=== PATIENT | female | born 1990 | race Caucasian/White ===

== ENCOUNTER 2020-04-07 14:26 | Emergency (ER) | payer MEDICAID ==
[~2020-04-07] VITALS: Ht 172.7 cm; Wt 81.6 kg
--- NOTE | 2020-04-07 14:37 | NUR ---
CAME IN FOR FOUL SMELLING VAGINAL DISCHARGE NOTED, TOOK 2ND "MORNING AFTER PILL", TO ER BED 16, HOOKED TO MONITOR, CHANGED TO HOSP GOWN, WARM BLANKET PROVIDED, PATIENT AAO x 4, BREATHING EVEN AND UNLABORED. AWAITING MD RODRIGUEZ.
--- NOTE | 2020-04-07 14:48 | NUR ---
DR HATHAWAY AT BEDSIDE
[2020-04-07 15:15] LABS: APPEARANCE,URINE Clear (CLEAR); BILIRUBIN,URINE Negative (NEGATIVE); BLOOD, URINE Negative Ery/uL (NEGATIVE); COLOR,URINE Yellow (YELLOW); KETONES,URINE Negative (NEGATIVE); LEUKOCYTE ESTERASE ,URINE Negative (NEGATIVE); NITRITE, URINE Negative (NEGATIVE); PH,URINE 8.5 (5.0-8.0); PROTEIN,URINE Negative (NEGATIVE); UGLUCOSE Negative (NEGATIVE); UROBILINOGEN,URINE 0.2 EU/dL (0.2)
[2020-04-07 15:34] LABS: BASOPHILS % (AUTO) 0.4 % (0.0-2.0); EOSINOPHILS % (AUTO) 4.2 % (0.0-6.0); HEMATOCRIT 35 % (33-45); HEMOGLOBIN 11.3 g/dL (11.5-14.8); LYMPHOCYTES # (AUTO) 2.1 /CMM (0.8-4.8); MEAN CORPUSCULAR HGB CONC 33 g/dl (31.0-36.0); MEAN CORPUSCULAR VOLUME 79 fL (82-100); MONOCYTES # (AUTO) 0.7 /CMM (0.1-1.30); MONOCYTES % (AUTO) 8.5 % (2.0-12.0); NEUTROPHILS # (AUTO) 5.3 /CMM (1.8-8.9); NEUTROPHILS % (AUTO) 61.9 % (43.0-81.0); PLATELET COUNT (AUTO) 256 /CMM (150-450); RED BLOOD CELL COUNT(AUTO) 4.43 MIL/uL (4.0-5.2); WHITE BLOOD COUNT (AUTO) 8.5 K/uL (4.3-11.0)
[2020-04-07 15:43] LABS: CALCIUM, SERUM 8.5 mg/dL (8.5-10.1); CREATININE 0.6 mg/dL (0.6-1.3); POTASSIUM 3.7 mmol/L (3.5-5.1)
--- NOTE | 2020-04-07 16:39 | NUR ---
ASSISTED DR HATHAWAY DURING PELVIC EXAM.
--- NOTE | 2020-04-07 16:40 | NUR ---
WET MOUNT AND GENITAL CULTURE (DONE BY DR HATHAWAY), SENT TO LAB
--- NOTE | 2020-04-07 17:32 | NUR ---
called main lab to follow up with wet mount result. 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 made aware
[2020-04-07 17:47] VITALS: BP 124/70
--- NOTE | 2020-04-07 17:47 | NUR ---
Patient discharged to home in stable condition. Written and verbal after care instructions given. Patient verbalizes understanding of instruction.
== END 2020-04-07 17:48 | disposition home or self-care (01) ==
LOC: ER 14:35
DX: N76.0 Acute vaginitis (principal)
CPT/HCPCS: 36415; 80048-TC; 81000-TC; 84702-TC; 85025-TC; 87070-TC; 87086-TC; 87210-TC; 87491; 87591